=== PATIENT | male | born 1990 | race Caucasian/White ===

== ENCOUNTER 2019-02-17 21:42 | Emergency (ER) | payer SELFPAY ==
[~2019-02-17] VITALS: Ht 165.1 cm; Wt 54.5 kg
[2019-02-17 22:05] VITALS: BP 144/93
== END 2019-02-17 23:36 | disposition left against medical advice (07) ==
LOC: EMS 21:46
DX: F12.90 Cannabis use, unspecified, uncomplicated (principal); Z53.21 Procedure and treatment not carried out due to patient leaving prior to being seen by health care provider